=== PATIENT | female | born 1955 | race Caucasian/White ===

== ENCOUNTER 2019-05-19 04:52 | Inpatient (IN) | payer BC ==
[~2019-05-19] VITALS: Ht 152.4 cm; Wt 64.4 kg
[2019-05-19 05:10] VITALS: BP_SYST 111
[2019-05-19] MEDS ORDERED: METHOCARBAMOL 1000 MG/10 ML VIAL IVP ONE (05:30)
[2019-05-19] MEDS ORDERED: NACL 0.9% 1,000 ML IV ONE (05:30)
[2019-05-19] MEDS ORDERED: METHOCARBAMOL 1000 MG/10 ML VIAL IM ONE (05:30)
[2019-05-19] MEDS ORDERED: ASPIRIN 81 MG TAB.CHEW PO ONE (05:30)
[2019-05-19] MEDS ORDERED: MAGNESIUM SULFATE 50 ML IV ONE (05:30)
[2019-05-19 05:50] LABS: BASOPHILS # (AUTO) 0.1 K/uL (0.0-0.2); BASOPHILS % (AUTO) 0.6 % (0.0-2.0); EOSINOPHILS # (AUTO) 0.2 K/uL (0.0-0.4); EOSINOPHILS % (AUTO) 1.6 % (0.0-4.0); HEMATOCRIT 34.8 % (36-48); HEMOGLOBIN 11.6 g/dL (12.0-16.0); LYMPHOCYTES # (AUTO) 2.8 K/uL (1.0-5.5); LYMPHOCYTES % (AUTO) 18.5 % (20.5-51.5); MEAN CORPUSCULAR HEMOGLOBIN 32 pg (27-31); MEAN CORPUSCULAR HGB CONC 33 % (32-36); MEAN CORPUSCULAR VOLUME 97 fL (79.0-98.0); MONOCYTES # (AUTO) 1.3 K/uL (0.0-1.0); MONOCYTES % (AUTO) 8.4 % (1.7-9.3); NEUTROPHILS # (AUTO) 10.9 K/uL (1.8-7.7); NEUTROPHILS % (AUTO) 70.9 % (40.0-70.0); PLATELET COUNT (AUTO) 202 K/uL (130-430); RED CELL DISTRIBUTION WIDTH 12.9 % (9.0-15.0); WHITE BLOOD COUNT (AUTO) 15.4 K/uL (4.8-10.8)
[2019-05-19 06:01] LABS: CALCIUM 8.6 mg/dL (8.4-11.0); CREATININE 0.78 mg/dL (0.55-1.30); POTASSIUM 3.6 mmol/L (3.5-5.1)
[2019-05-19 06:06] LABS: TOTAL BILIRUBIN 0.4 mg/dL (0.0-1.0)
[2019-05-19 06:22] LABS: BILIRUBIN,URINE NEGATIVE (NEGATIVE); BLOOD, URINE NEGATIVE (NEGATIVE); CLARITY/URINE CLEAR (CLEAR); COLOR,URINE YELLOW (YELLOW); GLUCOSE,URINE NEGATIVE (NEGATIVE); KETONES,URINE NEGATIVE (NEGATIVE); LEUKOCYTE ESTERASE ,URINE NEGATIVE (NEGATIVE); NITRITE, URINE NEGATIVE (NEGATIVE); PROTEIN URINE NEGATIVE (NEGATIVE); UROBILINOGEN,URINE 0.2 (0.2-1.0)
[2019-05-19] MEDS ORDERED: IOHEXOL 100 ML IV ONE (07:13)
[2019-05-19] MEDS ORDERED: cefTRIAXone 1 GM IVPB PREMIX 50 ML IV ONE (07:15)
[2019-05-19] MEDS ORDERED: AZITHROMYCIN 250 MG TABLET PO ONE (07:15)
[2019-05-19] MEDS ORDERED: MORPHINE 2 MG/ML INJ. SYRINGE IVP ONE (07:45)
[2019-05-19] MEDS ORDERED: KETOROLAC TROMETHAMINE 30 MG VIAL IVP ONE (07:45)
[2019-05-19] MEDS ORDERED: *HEPARIN PER PHARMACY XX ONE (09:00)
[2019-05-19] MEDS ORDERED: AMLO5TAB4 PO (09:19)
[2019-05-19] MEDS ORDERED: GABA-531 PO (09:19)
[2019-05-19] MEDS ORDERED: MV-M1TAB57 PO (09:19)
[2019-05-19] MEDS ORDERED: LIP10 PO (09:19)
[2019-05-19] MEDS ORDERED: ALEN10TA7 PO (09:19)
[2019-05-19] MEDS ORDERED: LANS15CA14 PO (09:19)
[2019-05-19] MEDS ORDERED: CYM30 PO (09:19)
[2019-05-19] MEDS ORDERED: OSCD500 PO (09:19)
[2019-05-19] MEDS ORDERED: IBUP-1969 PO (09:19)
[2019-05-19] MEDS ORDERED: VALS320T2 PO (09:19)
[2019-05-19 09:27] LABS: PROTHROMBIN TIME 9.8 SECS (9.5-12.5)
[2019-05-19 09:40] VITALS: BP_SYST 112
[2019-05-19 09:45] VITALS: BP_SYST 112
[2019-05-19] MEDS ORDERED: HEPARIN SODIUM,PORCINE 5000 UNITS/ML VIAL IVP ONE (09:45)
[2019-05-19] MEDS ORDERED: HEPARIN SODIUM,PORCINE 3000 UNITS/0.6 ML BOLUS IVP PRN (10:00)
[2019-05-19] MEDS ORDERED: HEPARIN SODIUM,PORCINE 2000 UNITS/0.4 ML BOLUS IVP PRN (10:00)
[2019-05-19] MEDS ORDERED: HEPARIN 25,000 UNITS in 250 ML PREMIX IV PRN (10:00)
[2019-05-19] MEDS ORDERED: ONDANSETRON HCL 4 MG/2 ML VIAL IVP PRN (12:00)
[2019-05-19] MEDS ORDERED: LORazepam 2 MG/ML VIAL IVP PRN (12:00)
[2019-05-19] MEDS ORDERED: ACETAMINOPHEN 325 MG TABLET PO PRN (12:00)
[2019-05-19] MEDS: NORMAL SALINE 5 ML DISP.SYRIN IVF SCH ×2 (13:54→21:51)
[2019-05-19] MEDS: GABAPENTIN 300 MG CAPSULE PO SCH ×2 (15:53→21:50)
[2019-05-19] MEDS: IBUPROFEN 600 MG TABLET PO SCH ×2 (15:55→21:50)
[2019-05-19] MEDS: WARFARIN SODIUM 5 MG TABLET PO SCH (17:44)
[2019-05-19 17:46] LABS: PROTHROMBIN TIME 9.7 SECS (9.5-12.5)
[2019-05-19 20:00] VITALS: BP_SYST 106
[2019-05-19] MEDS: CALCIUM CARBONATE/VITAMIN D3 1 TAB TABLET PO SCH (21:51)
[2019-05-20 01:02] VITALS: BP_SYST 114
[2019-05-20] MEDS: ALENDRONATE SODIUM 5 MG TABLET PO SCH (06:00)
[2019-05-20 06:15] LABS: BASOPHILS # (AUTO) 0.1 K/uL (0.0-0.2); BASOPHILS % (AUTO) 0.8 % (0.0-2.0); EOSINOPHILS # (AUTO) 0.3 K/uL (0.0-0.4); EOSINOPHILS % (AUTO) 2.2 % (0.0-4.0); HEMATOCRIT 32.3 % (36-48); HEMOGLOBIN 10.4 g/dL (12.0-16.0); LYMPHOCYTES # (AUTO) 4.2 K/uL (1.0-5.5); LYMPHOCYTES % (AUTO) 32.2 % (20.5-51.5); MEAN CORPUSCULAR HEMOGLOBIN 32 pg (27-31); MEAN CORPUSCULAR HGB CONC 32 % (32-36); MEAN CORPUSCULAR VOLUME 99 fL (79.0-98.0); MONOCYTES # (AUTO) 1.4 K/uL (0.0-1.0); MONOCYTES % (AUTO) 11.1 % (1.7-9.3); NEUTROPHILS # (AUTO) 6.9 K/uL (1.8-7.7); NEUTROPHILS % (AUTO) 53.7 % (40.0-70.0); PLATELET COUNT (AUTO) 200 K/uL (130-430); RED BLOOD CELL COUNT(AUTO) 3.27 MIL/uL (4.2-6.2); WHITE BLOOD COUNT (AUTO) 12.9 K/uL (4.8-10.8)
[2019-05-20 06:23] LABS: CALCIUM 8.8 mg/dL (8.4-11.0); CREATININE 0.7 mg/dL (0.55-1.30); PHOSPHORUS 4.9 mg/dL (2.7-4.5); POTASSIUM 3.7 mmol/L (3.5-5.1)
[2019-05-20 06:25] LABS: PROTHROMBIN TIME 9.9 SECS (9.5-12.5)
[2019-05-20] MEDS: NORMAL SALINE 5 ML DISP.SYRIN IVF SCH ×3 (06:57→20:55)
[2019-05-20 08:20] VITALS: BP_SYST 121
[2019-05-20] MEDS: IBUPROFEN 600 MG TABLET PO SCH ×3 (08:23→20:43)
[2019-05-20] MEDS: amLODIPine BESYLATE 5 MG TABLET PO SCH (08:24)
[2019-05-20] MEDS: DULoxetine HCL 30 MG CAPSULE.DR (CYMBALTA) PO SCH (08:24)
[2019-05-20] MEDS: LANSOPRAZOLE 30 MG CAPSULE.DR PO SCH (08:24)
[2019-05-20] MEDS: MULTIVITS,CA,MINERALS/IRON/FA 1 TABLET PO SCH (08:24)
[2019-05-20] MEDS: LOSARTAN POTASSIUM 50 MG TABLET (COZAAR) PO SCH (08:26)
[2019-05-20] MEDS: ATORVASTATIN 10 MG TABLET PO SCH (08:27)
[2019-05-20] MEDS: CALCIUM CARBONATE/VITAMIN D3 1 TAB TABLET PO SCH ×2 (08:27→20:44)
[2019-05-20] MEDS: cefTRIAXone 1 GM IVPB PREMIX 50 ML IV SCH (08:27)
[2019-05-20] MEDS: GABAPENTIN 300 MG CAPSULE PO SCH ×3 (08:30→20:44)
[2019-05-20] MEDS: AZITHROMYCIN 500 MG in NS 250 ML IV SCH (10:16)
[2019-05-20] MEDS ORDERED: ALBUTEROL SULFATE 0.083% 2.5 MG/3 ML VIAL.NEB INH PRN (11:45)
[2019-05-20] MEDS ORDERED: *LOVENOX 1MG/KG Q12H/PHARMACY XX ONE (11:45)
[2019-05-20] MEDS ORDERED: IPRATROPIUM BROM 0.5 MG/2.5 ML VIAL.NEB (ATROVENT) INH PRN (11:45)
[2019-05-20] MEDS ORDERED: ENOXAPARIN SODIUM 60 MG/0.6 ML SYRINGE SUBCUT ONE (12:15)
[2019-05-20 12:33] VITALS: BP_SYST 129
[2019-05-20] MEDS ORDERED: CYCL-10 PO (14:24)
[2019-05-20] MEDS ORDERED: IBUP-1970 PO (14:24)
[2019-05-20 15:18] LABS: INFLUENZA A&B ANTIGEN SCREEN NEGATIVE FOR A & B (NEGATIVE); RESPIRATORY SYNCYTIAL VIRUS NEGATIVE (NEGATIVE)
[2019-05-20] MEDS: IPRATROPIUM BROM 0.5 MG/2.5 ML VIAL.NEB (ATROVENT) INH SCH ×2 (15:20→19:37)
[2019-05-20] MEDS: ALBUTEROL SULFATE 0.083% 2.5 MG/3 ML VIAL.NEB INH SCH ×2 (15:20→19:36)
[2019-05-20 15:32] VITALS: BP_SYST 121
[2019-05-20 16:30] VITALS: BP_SYST 125
[2019-05-20] MEDS: WARFARIN SODIUM 5 MG TABLET PO SCH (17:41)
[2019-05-20 19:55] VITALS: BP_SYST 102
[2019-05-20] MEDS: ENOXAPARIN SODIUM 60 MG/0.6 ML SYRINGE SUBCUT SCH (20:55)
[2019-05-21 00:38] VITALS: BP_SYST 110
[2019-05-21] MEDS: ALBUTEROL SULFATE 0.083% 2.5 MG/3 ML VIAL.NEB INH SCH ×6 (03:00→23:00)
[2019-05-21] MEDS: IPRATROPIUM BROM 0.5 MG/2.5 ML VIAL.NEB (ATROVENT) INH SCH ×6 (03:00→23:00)
[2019-05-21] MEDS: ALENDRONATE SODIUM 5 MG TABLET PO SCH (06:00)
[2019-05-21] MEDS: NORMAL SALINE 5 ML DISP.SYRIN IVF SCH ×3 (06:17→22:25)
[2019-05-21 06:28] LABS: BASOPHILS # (AUTO) 0.1 K/uL (0.0-0.2); BASOPHILS % (AUTO) 0.8 % (0.0-2.0); EOSINOPHILS # (AUTO) 0.3 K/uL (0.0-0.4); EOSINOPHILS % (AUTO) 2.2 % (0.0-4.0); HEMATOCRIT 29.7 % (36-48); HEMOGLOBIN 9.6 g/dL (12.0-16.0); LYMPHOCYTES # (AUTO) 4.9 K/uL (1.0-5.5); LYMPHOCYTES % (AUTO) 36.5 % (20.5-51.5); MEAN CORPUSCULAR HEMOGLOBIN 32 pg (27-31); MEAN CORPUSCULAR HGB CONC 32 % (32-36); MEAN CORPUSCULAR VOLUME 97 fL (79.0-98.0); MONOCYTES # (AUTO) 1.2 K/uL (0.0-1.0); MONOCYTES % (AUTO) 9.3 % (1.7-9.3); NEUTROPHILS # (AUTO) 6.8 K/uL (1.8-7.7); NEUTROPHILS % (AUTO) 51.2 % (40.0-70.0); PLATELET COUNT (AUTO) 211 K/uL (130-430); RED BLOOD CELL COUNT(AUTO) 3.05 MIL/uL (4.2-6.2); RED CELL DISTRIBUTION WIDTH 12.8 % (9.0-15.0); WHITE BLOOD COUNT (AUTO) 13.3 K/uL (4.8-10.8)
[2019-05-21 06:34] LABS: ALBUMIN 2.4 g/dL (3.4-4.8); CALCIUM 8.4 mg/dL (8.4-11.0); CREATININE 0.73 mg/dL (0.55-1.30); POTASSIUM 3.8 mmol/L (3.5-5.1); TOTAL BILIRUBIN 0.2 mg/dL (0.0-1.0)
[2019-05-21 08:07] VITALS: BP_SYST 119
[2019-05-21] MEDS: cefTRIAXone 1 GM IVPB PREMIX 50 ML IV SCH (08:42)
[2019-05-21] MEDS: CALCIUM CARBONATE/VITAMIN D3 1 TAB TABLET PO SCH ×2 (08:42→20:31)
[2019-05-21] MEDS: IBUPROFEN 600 MG TABLET PO SCH ×3 (08:42→20:31)
[2019-05-21] MEDS: amLODIPine BESYLATE 5 MG TABLET PO SCH (08:43)
[2019-05-21] MEDS: GABAPENTIN 300 MG CAPSULE PO SCH ×3 (08:43→20:31)
[2019-05-21] MEDS: LOSARTAN POTASSIUM 50 MG TABLET (COZAAR) PO SCH (08:44)
[2019-05-21] MEDS: MULTIVITS,CA,MINERALS/IRON/FA 1 TABLET PO SCH (08:44)
[2019-05-21] MEDS: DULoxetine HCL 30 MG CAPSULE.DR (CYMBALTA) PO SCH (08:44)
[2019-05-21] MEDS: LANSOPRAZOLE 30 MG CAPSULE.DR PO SCH (08:44)
[2019-05-21] MEDS: ATORVASTATIN 10 MG TABLET PO SCH (08:44)
[2019-05-21] MEDS: ENOXAPARIN SODIUM 60 MG/0.6 ML SYRINGE SUBCUT SCH ×2 (08:46→20:33)
[2019-05-21] MEDS: AZITHROMYCIN 500 MG in NS 250 ML IV SCH (09:49)
[2019-05-21 12:28] VITALS: BP_SYST 100
[2019-05-21 16:31] VITALS: BP_SYST 106
[2019-05-21] MEDS ORDERED: WARFARIN SODIUM 6 MG TABLET PO SCH (18:00)
[2019-05-21 20:17] VITALS: BP_SYST 103
[2019-05-22 01:31] VITALS: BP_SYST 100
[2019-05-22] MEDS: ALBUTEROL SULFATE 0.083% 2.5 MG/3 ML VIAL.NEB INH SCH ×3 (03:00→11:53)
[2019-05-22] MEDS: IPRATROPIUM BROM 0.5 MG/2.5 ML VIAL.NEB (ATROVENT) INH SCH ×3 (03:00→11:53)
[2019-05-22] MEDS: NORMAL SALINE 5 ML DISP.SYRIN IVF SCH (05:48)
[2019-05-22] MEDS ORDERED: ALENDRONATE SODIUM 10 MG TABLET PO SCH (06:00)
[2019-05-22 06:32] LABS: INR 1.1 (0.8-1.2); PROTHROMBIN TIME 10.8 SECS (9.5-12.5)
[2019-05-22 08:02] VITALS: BP_SYST 115
[2019-05-22] MEDS: LANSOPRAZOLE 30 MG CAPSULE.DR PO SCH (08:22)
[2019-05-22] MEDS: GABAPENTIN 300 MG CAPSULE PO SCH (08:22)
[2019-05-22] MEDS: MULTIVITS,CA,MINERALS/IRON/FA 1 TABLET PO SCH (08:22)
[2019-05-22] MEDS: cefTRIAXone 1 GM IVPB PREMIX 50 ML IV SCH (08:22)
[2019-05-22] MEDS: CALCIUM CARBONATE/VITAMIN D3 1 TAB TABLET PO SCH (08:22)
[2019-05-22] MEDS: ATORVASTATIN 10 MG TABLET PO SCH (08:22)
[2019-05-22] MEDS: DULoxetine HCL 30 MG CAPSULE.DR (CYMBALTA) PO SCH (08:22)
[2019-05-22] MEDS: amLODIPine BESYLATE 5 MG TABLET PO SCH (08:23)
[2019-05-22] MEDS: LOSARTAN POTASSIUM 50 MG TABLET (COZAAR) PO SCH (08:23)
[2019-05-22] MEDS: IBUPROFEN 600 MG TABLET PO SCH (08:24)
[2019-05-22] MEDS: ENOXAPARIN SODIUM 60 MG/0.6 ML SYRINGE SUBCUT SCH (08:25)
[2019-05-22] MEDS: AZITHROMYCIN 500 MG in NS 250 ML IV SCH (09:28)
[2019-05-22 12:30] VITALS: BP_SYST 117
[2019-05-22 12:50] VITALS: BP_SYST 117
[2019-05-22] MEDS ORDERED: WARFARIN SODIUM 7.5 MG TABLET PO SCH (18:00)
[2019-05-23] MEDS ORDERED: ALENDRONATE SODIUM 10 MG TABLET (FOSAMAX) PO SCH (06:00)
[2019-05-23 20:06] LABS: MYCOPLASMA PNEUMONIAE IgM <770 U/mL (0-769)
[2019-05-24 11:54] LABS: MYCOPLASMA PNEUMONIAE IgG 752 U/mL (0-99)
[2019-05-29] MEDS ORDERED: ALENDRONATE SODIUM 10 MG TABLET PO SCH (06:00)
== END 2019-05-22 12:57 | disposition home or self-care (01) | DRG 175 ==
LOC: SED 04:52 → STU 08:10
PROVIDERS: ADMIT Internal Medicine Hospice and Palliative Medicine; ATTEND Internal Medicine Hospice and Palliative Medicine
DX: I26.09 Other pulmonary embolism with acute cor pulmonale (principal); J18.9 Pneumonia, unspecified organism; J96.00 Acute respiratory failure, unspecified whether with hypoxia or hypercapnia; I10 Essential (primary) hypertension; J43.9 Emphysema, unspecified; D72.829 Elevated white blood cell count, unspecified; D64.9 Anemia, unspecified; E88.09 Other disorders of plasma-protein metabolism, not elsewhere classified; R73.9 Hyperglycemia, unspecified; F17.200 Nicotine dependence, unspecified, uncomplicated; R59.9 Enlarged lymph nodes, unspecified; Z79.899 Other long term (current) drug therapy; Z88.5 Allergy status to narcotic agent; Z87.81 Personal history of (healed) traumatic fracture
CPT/HCPCS: 36415; 71045; 71275; 80048; 80053; 81003; 82550-TC; 83605; 83735-TC; 83880; 84100-TC; 84484; 85025; 85379; 85610-TC; 85730-TC; 86710; 86738; 87040-TC; 87081; 87420; 87449; 93005; 93970; 94640; 94760; 96365; 96366; 96368; 96375; 99285; G0378; J0456; J0696; J1644; J1650; J1885; J2270; J2800; J3475; J7030; J7050; J7613; Q0144; Q9967